=== PATIENT | female | born 1955 | race Hispanic/Latino ===

== ENCOUNTER 2017-01-18 04:21 | Emergency (ER) | payer MEDICARE, OTHER ==
[2017-01-18 04:22] VITALS: BMI 44.4
[2017-01-18 04:36] VITALS: BP 148/71; PULSE 83; RESP 18; TEMP 98; O2SAT 98
--- NOTE | 2017-01-18 05:30 | ED PDOC ---
HPI: General Adult Time Seen by Provider: 01/18/17 04:26 Chief Complaint (Nursing): Med Refill Chief Complaint (Provider): Rx refill History Per: Patient History/Exam Limitations: no limitations Onset/Duration Of Symptoms: Days Have you had recent travel within the past 21 days to any of the following countries: [place], [place], [place] or [place]?: No Current Symptoms Are (Timing): Still Present Additional Complaint(s): 61yo female with PMHx including Crohn's disease, breast cancer, kidney disease, chronic pain presents to the ED for Rx refill. Patient reports being on monthly 4x daily Dilaudid 4mg for chronic pain and erroneously threw out filled Rx. Patient states she filled Rx on 01/10/2017 and 4 days later mistakenly threw out the filled Rx. Reports at that time she filed police report which she showed to the provider. States she is concerned because she has exhausted the emergency supply she keeps on hand. Notes her PCP (Dr. Chinedu Jane) is away until 2016. Covering physician for Dr. Jane refused to give patient new Rx so she returns this morning stating she may go into withdrawal. Past Medical History Reviewed: Historical Data, Nursing Documentation, Vital Signs Vital Signs: Last Vital Signs Temp 98 F 01/18/17 04:31 Pulse 83 01/18/17 04:31 Resp 18 01/18/17 04:31 BP 148/71 01/18/17 04:31 Pulse Ox 98 01/18/17 04:31 - Medical History PMH: COPD, Crohn's Disease, HTN, Chronic Kidney Disease, Chronic Pain Other PMH: breast cancer - Surgical History Other surgeries: multiple abdominal surgeries - Family History Family History: States: No Known Family Hx - Social History Current smoker - smoking cessation education provided: No Alcohol: None Drugs: Denies - Home Medications Home Medications: Ambulatory Orders Medication Instructions Recorded Cholecalciferol (Vitamin D3) 5,000 units PO DAILY 10/15/15 [Vitamin D] Furosemide [Lasix] 20 mg PO DAILY 10/15/15 HYDROmorphone [Dilaudid] 4 mg PO Q6 PRN 10/15/15 Lisinopril [Zestril] 20 mg PO DAILY 10/15/15 Metoprolol Succinate [Toprol XL] 50 mg PO DAILY 10/15/15 Pregabalin [Lyrica] 2 cap PO DAILY 10/15/15 - Allergies Allergies/Adverse Reactions: Allergies Allergy/AdvReac Type Severity Reaction Status Date / Time codeine Allergy RASH Verified 01/18/17 04:30 Review of Systems ROS Statement: Except As Marked, All Systems Reviewed And Found Negative Constitutional: Positive for: Other (Rx refill ) Physical Exam - Reviewed Nursing Documentation Reviewed: Yes Vital Signs Reviewed: Yes - Physical Exam Appears: Positive for: Well, No Acute Distress Head Exam: Positive for: ATRAUMATIC, NORMAL INSPECTION, NORMOCEPHALIC Skin: Positive for: Normal Color, Warm, Dry Eye Exam: Positive for: Normal appearance, EOMI, PERRL ENT: Positive for: Normal ENT Inspection Neck: Positive for: Normal, Painless ROM, Supple Cardiovascular/Chest: Positive for: Regular Rate, Rhythm. Negative for: Murmur , Tachycardia Respiratory: Positive for: Normal Breath Sounds. Negative for: Wheezing, Respiratory Distress Gastrointestinal/Abdominal: Positive for: Normal Exam, Bowel Sounds, Soft. Negative for: Tenderness Back: Positive for: Normal Inspection. Negative for: L CVA Tenderness, R CVA Tenderness Extremity: Positive for: Normal ROM. Negative for: Deformity, Swelling Neurologic/Psych: Positive for: Alert, Oriented, Mood/Affect (anxious ) - ECG O2 Sat by Pulse Oximetry: 98 Pulse Ox Interpretation: Normal (RA) Medical Decision Making Medical Decision Makin: Impression: 61yo female presents for narcotic Rx refill Plan: Patient's Rx hx examined on [facility] website. Patient taking meds in manner prescribed and does not demonstrate pattern of abuse or breakage of pain contract. Patient was informed due to hospital policy that Rx can not be provided. 1 dose of 4mg Dilaudid given here in ED and patient given referral to dial painter in interim until Dr. Jane returns. Patient stable for d/c. Dx: chronic pain stable Scribe Attestation: Documented by Judith Benton acting as a scribe for Isidro Real MD. Provider Scribe Attestation: All medical record entries made by the Scribe were at my direction and personally dictated by me. I have reviewed the chart and agree that the record accurately reflects my personal performance of the history, physical exam, medical decision making, and the department course for this patient. I have also personally directed, reviewed, and agree with the discharge instructions and disposition. Disposition - Clinical Impression Clinical Impression: Chronic pain - Patient ED Disposition Is Patient to be Admitted: No - Disposition Referrals: Bernardo Spear MD [Staff Provider] - Disposition: Routine/Home Disposition Time: 05:25 Condition: STABLE Instructions: Chronic Pain (ED)
== END 2017-01-18 05:45 | disposition home or self-care (01) ==
LOC: H.ER 04:21
DX: G89.29 Other chronic pain (principal)